=== PATIENT | female | born 1955 | race African-American/Black ===

== ENCOUNTER 2025-01-04 09:31 | Emergency (ER) | payer OTHER, MEDICAID ==
[~2025-01-04] VITALS: Ht 167.6 cm; Wt 75.0 kg
[~2025-01-04 09:31] MED LIST: NITR0.4S29 SL
--- NOTE | 2025-01-04 09:40 | ED.PDOC ---
HPI Comments 69 year old female presents to the ED via EMS with a chief complaint of chest pain onset today around 06:00. Patient states she has LT sided chest pain, described as a pressure sensation since 06:00. Prior to EMS arrival, pain was 10/10, upon ED arrival pain has improved to 6/10. Upon EMS arrival, patient O2 sat was 91% RA, placed on 2L NC, hypertensive with BP 200/102, states she took HTN medication this morning. Patient states she had been experiencing cough and congestion the past 2 days. She also noticed shortness of breath. PMHx angina, HTN. Denies nausea, vomiting, diarrhea, headache, dizziness, abdominal pain, dysuria, hematuria. No other symptoms or modifying factors present at this time. Time Seen by MD: 09:33 Primary Care Provider: ERASTO Guzman Notes: Medications, Allergies Allergies: Coded Allergies: NO KNOWN ALLERGIES (Unverified , 06/10/15) Home Meds Active Scripts Nitroglycerin (Nitrostat) 0.4 Mg Sub, 0.4 MG SL Q12HP PRN, #10 INJ Prov:ARYA CHRISTENSEN PAC 07/18/24 Information Source: Patient, Emergency Med Personnel Mode of Arrival: EMS Severity: Moderate Timing: Hours Duration: Since onset Prehospital treatment: Oxygen Location: Chest (L) Radiation: No Radiation Quality: Pressure Onset: At Rest Cardiac Risk Factors: HTN PE Risk Factors: None History of: Angina Modifying Factors: Nothing Associated Signs and Symptoms: SOB, Other Past Medical History PAST MEDICAL HISTORY: Angina, HTN Surgical History: Denies all surgeries EQUAL OPPORTUNITY COUNSELOR History: No Pertinent EQUAL OPPORTUNITY COUNSELOR History Family History Family History: Reviewed,noncontributory to illness, No family hx of Cancer, No family hx of DM, No family hx of Heart girma, No family hx of HTN, No family hx ofKidney girma, No family hx of Liver girma, No family hx of Lung girma, No family hx of Stroke Social History Smoker: Non-Smoker Alcohol: Denies ETOH Use Drugs: Denies Drug Use Lives In: Home Constitutional: denies: chills, diaphoresis, fatigue, fever, malaise, sweats, weakness, others EENTM: reports: nose congestion; denies: blurred vision, double vision, ear bleeding, ear discharge, ear drainage, ear pain, ear ringing, eye pain, eye redness, hearing loss, mouth pain, mouth swelling, nasal discharge, nose bleeding, nose pain, photophobia, tearing, throat pain, throat swelling, voice changes, others Respiratory: reports: cough, shortness of breath; denies: hemoptysis, orthopnea, SOB at rest, SOB with excertion, stridor, wheezing, others Cardiovascular: reports: chest pain; denies: dizzy spells, diaphoresis, Dyspnea on exertion, edema, irregular heart beat, left arm pain, lightheadedness, palpitations, PND, syncope, others Gastrointestinal: denies: abdomen distended, abdominal pain, blood streaked bowels, constipated, diarrhea, dysphagia, difficulty swallowing, hematemesis, melena, nausea, poor appetite, poor fluid intake, rectal bleeding, rectal pain, vomiting, others Genitourinary: denies: abnormal vagina bleeding, burning, dyspareunia, dysuria, flank pain, frequency, hematuria, incontinence, pain, , vagina discharge, urgency, others Neurological: denies: dizziness, fainting, headache, left sided numbness, left sided weakness, numbness, paresthesia, pre-existing deficit, right sided n umbness, right sided weakness, seizure, speech problems, tingling, tremors, weakness, others Musculoskeletal: denies: back pain, gout, joint pain, joint swelling, muscle pain, muscle stiffness, neck pain, others Integumetry: denies: bruises, change in color, change in hair/nails, dryness, laceration, lesions, lumps, rash, wounds, others Allergic/Immunocompromised: denies: Difficulty Healing, Frequent Infections, Hives, Itching, others Hematologic/Lymphatic: denies: anemia, blood clots, easy bleeding, easy bruising, swollen glands, others Endocrine: denies: excessive hunger, excessive sweating, excessive thirst, excessive urination, flushing, intolerance to cold, intolerance to heat, unexplained weight gain, unexplained weight loss, others Psychiatric: denies: anxiety, bipolar disorder, depression, hopeless, panic disorder, schizophrenia, sleepless, suicidal, others All Other Systems: Reviewed and Negative Physical Exam General Appearance: No Apparent Distress, Normal HEENT: Normal ENT Inspection, Pharynx Normal, TMs Normal Neck: Full Range of Motion, Non-Tender, Normal, Normal Inspection Respiratory: Chest Non-Tender, Lungs Clear, No Accessory Muscle Use, No Respiratory Distress, Normal Breath Sounds Cardiovascular: No Edema, No JVD, No Murmur, No Gallop, Normal Peripheral Pulses, Regular Rate/Rhythm Breast Exam: Deferred Gastrointestinal: No Organomegaly, Non Tender, No Pulsatile Mass, Normal Bowel Sounds, Soft Genitalia: Deferred Pelvic: Deferred Rectal: Deferred Extremities: No calf tenderness, Normal capillary refill, Normal inspection, Normal range of motion, Non-tender, No pedal edema Musculoskeletal : Apperance: Normal Neurologic: Alert, manager security and safety II-XII nml as Tested, No Motor Deficits, Normal Affect, Normal Mood, No Sensory Deficits Cerebellar Function: Normal Reflexes: Normal Skin: Dry, Normal Color, Warm Lymphatic: No Adenopathy Was a procedure done? Was a procedure done?: No CP Differential Dx Differential Diagnosis: Hypoxia, MAT, ID, PAC's Differential Diagnosis: HTN Essential, HTN Accelerated, HTN Encephalopathy Differential Diagnosis: Chest Wall Pain X-Ray, Labs, Meds, VS Vital Signs Date Time Temp Pulse Resp B/P (MAP) Pulse Ox O2 Delivery O2 Flow Rate FiO2 01/04/25 12:50 88 22 204/101 (135) 93 01/04/25 12:35 83 01/04/25 12:00 98.6 81 16 188/88 (121) 100 98.6 01/04/25 10:40 70 01/04/25 10:24 72 11 100 Room Air* 0 21 01/04/25 10:20 67 01/04/25 10:19 97.9 71 12 173/91 (118) 100 97.9 01/04/25 09:38 98.0 88 18 200/102 (134) 99 98.0 01/04/25 09:31 75 Lab Test 01/04/25 13:25 01/04/25 10:36 01/04/25 09:38 Range/Units Troponin I High Sensitivity 4 4 3 L </=34 ng/L White Blood Count 7.3 4.4-10.8 10^3/uL Red Blood Count 3.42 L 4.0-5.20 10^6/uL Hemoglobin 11.1 L 12.2-16.2 g/dL Hematocrit 32.8 L 36.0-46.0 % Mean Corpuscular Volume 96.0 80.0-100.0 fL Mean Corpuscular Hemoglobin 32.5 H 28.0-32.0 pg Mean Corpuscular Hemoglobin Concent 33.9 32.0-36.0 g/dL Red Cell Distribution Width 14.0 11.8-14.3 % Platelet Count 155 140-450 10^3/uL Mean Platelet Volume 7.7 6.9-10.8 fL Neutrophils (%) (Auto) 76.6 37.0-80.0 % Lymphocytes (%) (Auto) 12.2 10.0-50.0 % Monocytes (%) (Auto) 10.9 0.0-12.0 % Eosinophils (%) (Auto) 0.1 0.0-7.0 % Basophils (%) (Auto) 0.2 0.0-2.0 % Neutrophils # (Auto) 5.6 1.6-8.6 10 ^3/uL Lymphocytes # (Auto) 0.9 0.4-5.4 10 ^3/uL Monocytes # (Auto) 0.8 0-1.3 10 ^3/uL Eosinophils # (Auto) 0 0-0.8 10 ^3/uL Basophils # (Auto) 0 0-0.2 10 ^3/uL Nucleated Red Blood Cells 0.0 % Sodium Level 140 136-145 mmol/L Potassium Level 3.9 3.5-5.1 mmol/L Chloride Level 112 H 98-107 mmol/L Carbon Dioxide Level 24 20-31 mmol/L Anion Gap 4 L 5-15 Blood Urea Nitrogen 16 9-23 mg/dL Creatinine 0.92 0.550-1.02 mg/dL Glomerular Filtration Rate Calc 67 >90 mL/min BUN/Creatinine Ratio 17.4 10.0-20.0 Serum Glucose 137 H 74-106 mg/dL Calcium Level 9.0 8.7-10.4 mg/dL [place] [id number] Ph: [phone] DIAGNOSTIC IMAGING Diagnostic Imaging Report : [id number] Signed PATIENT: ROSE PEREZ ACCT: [id number] UNIT: [id number] : 1955 LOC: ER ROOM / BED: / AGE / SEX: 69 / F ADM STATUS: REG ER SERVICE [id number] ORDERING PHYSICIAN: JOSE EDUARDO JEFFERSON MD PROCEDURE(s): CXRP - CHEST PORTABLE REASON: chest pain ORDER NUMBER(s): [id number], ACCESSION NUMBER(s): [id number] EXAM: XY CHEST PORTABLE HISTORY: chest pain COMPARISON: XY CHEST PORTABLE on DOS: 07/18/24 TECHNIQUE: Portable AP view of the chest was performed. FINDINGS: No pneumothorax, consolidative infiltrates, or pulmonary edema. The heart is borderline enlarged. There are degenerative changes of the right shoulder, with high-riding humeral head consistent with significant rotator cuff tendinopathy. IMPRESSION: 1. No acute intrathoracic process. 2. Secondary evidence of right shoulder rotator cuff tendinopathy. Consider follow-up noncontrast MRI of the right shoulder for better characterization. ATED BY: AMADOR CALVERT MD DICTATED DATE/TIME: 01/04/251121 SIGNED BY: AMADOR CALVERT MD SIGNED DATE/TIME: 01/04/251121 CC: Time of 1ST Reevaluation: 10:03 Reevaluation 1ST: Unchanged Patient Education/Counseling: Diagnosis, Treatment, Prognosis Family Education/Counseling: No Family Present Additional Information The following tests were ordered, and results were reviewed by me: EKG -x3, BMP, CBC, TROP -x3, XY CHEST Additional Information was gathered from interviewing the following independent historians: EMS I reviewed and agreed with the following test results read by other providers: XY CHEST I discussed treatment and results with medical personnel and: Patient Comprehensive systems review obtained and negative except for what is stated in the HPI. Departure 1 Departure Time of Disposition: 20:03 (Patient presented with chest pain that was concerning for possible STEMI, ACS, PE, Pneumonia, Muscle Strain, COPD, Dissection. Data: 1. I ordered and reviewed the result of at least 3 labs including a CBC, BMP, and Troponin. 2. I independently interpreted the following tests: EKG which shows sinus arrhythmia and Chest X-ray which shows benign chest.Risk:This patient has a high risk of morbidity due to further diagnostic testing or treatment and may suffer from an acute cardiac or respiratory disorder. Workup reveals concern for ACS and patient should be admitted for further workup and possible expert consultation. Discussed with Matti who was following up on labs.Matti informed me that patient has had multiple calls to them for psychiatric help the past several days.Patient is signed out AMA) Impression: Primary Impression: Acute chest pain Additional Impression: Shortness of breath Disposition: LEFT AGAINST MEDICAL ADVICE Condition: Serious Critical Care Note Critical Care Time?: No Stability Stability form required: No Heart Score Heart Score: Heart Score Response (Comments) Value History Moderate Suspicious 1 EKG Repolarization Disturb 1 Age >65 2 Risk Factors >3 or Hx ASHD 2 Troponin Normal limit 0 Total 6 I personally scribed for JOSE EDUARDO JEFFERSON MD ([email or web address]) on 01/04/25 at 09:40. Electronically submitted by Linn Parra ([email or web address]). I personally scribed for JOSE EDUARDO JEFFERSON MD ([email or web address]) on 01/04/25 at 09:47. Electronically submitted by Linn Parra ([email or web address]). I personally scribed for JOSE EDUARDO JEFFERSON MD ([email or web address]) on 01/04/25 at 10:48. Electronically submitted by Linn Parra ([email or web address]). I personally scribed for JOSE EDUARDO JEFFERSON MD ([email or web address]) on 01/04/25 at 11:38. Electronically submitted by Linn Parra ([email or web address]). JOSE EDUARDO JEFFERSON MD Jan 04, 2025 09:40
[2025-01-04 09:46] LABS: Basophils # (auto) 0 10 ^3/uL (0-0.2); Basophils % (auto) 0.2 % (0.0-2.0); Eosinophils # (auto) 0 10 ^3/uL (0-0.8); Eosinophils % (auto) 0.1 % (0.0-7.0); Hematocrit 32.8 % (36.0-46.0); Hemoglobin 11.1 g/dL (12.2-16.2); Lymphocytes # (auto) 0.9 10 ^3/uL (0.4-5.4); Lymphocytes % (auto) 12.2 % (10.0-50.0); Mean Corpuscular Hemoglobin 32.5 pg (28.0-32.0); Mean Corpuscular Hgb Conc. 33.9 g/dL (32.0-36.0); Monocytes # (auto) 0.8 10 ^3/uL (0-1.3); Monocytes % (auto) 10.9 % (0.0-12.0); Neutrophils # (auto) 5.6 10 ^3/uL (1.6-8.6); Neutrophils % (auto) 76.6 % (37.0-80.0); Platelet Count (auto) 155 10^3/uL (140-450); Red Blood Cells 3.42 10^6/uL (4.0-5.20); White Blood Cell 7.3 10^3/uL (4.4-10.8)
[2025-01-04 10:02] LABS: Potassium 3.9 mmol/L (3.5-5.1); Sodium 140 mmol/L (136-145)
[2025-01-04 10:03] LABS: Carbon Dioxide 24 mmol/L (20-31)
[2025-01-04 10:08] LABS: BUN/Creatinine Ratio 17.4 (10.0-20.0); Blood Urea Nitrogen 16 mg/dL (9-23); Glucose 137 mg/dL (74-106)
[2025-01-04 10:24] VITALS: PULSE 72; RESP 11; O2SAT 100
[2025-01-04 10:29] LABS: Anion Gap 4 (5-15)
[2025-01-04 10:35] LABS: Chloride 112 mmol/L (98-107)
--- NOTE | 2025-01-04 11:24 | DVH ---
EXAM: XY CHEST PORTABLE HISTORY: chest pain COMPARISON: XY CHEST PORTABLE on DOS: 07/18/24 TECHNIQUE: Portable AP view of the chest was performed. FINDINGS: No pneumothorax, consolidative infiltrates, or pulmonary edema. The heart is borderline enl arged. There are degenerative changes of the right shoulder, with high-riding humeral head consistent with significant rotator cuff tendinopathy. IMPRESSION: 1. No acute intrathoracic process. 2. Secondary evidence of right shoulder rotator cuff tendinopathy. Consider follow-up noncontrast MR I of the right shoulder for better characterization.
[2025-01-04 12:00] VITALS: TEMP 98.6
--- NOTE | 2025-01-04 12:38 | ECG ---
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
[2025-01-04 12:50] VITALS: BP 204/101; PULSE 88; RESP 22; O2SAT 93
[2025-01-04] MEDS: hydrALAZINE HCL 20 MG/ML VL IV ONE (12:55)
[2025-01-04] MEDS ORDERED: LORazepam 2MG/ML-1ML VIAL IV ONE (13:45)
[2025-01-04] MEDS: LORazepam 0.5 MG TAB PO ONE (14:08)
--- NOTE | 2025-01-04 20:55 | ECG ---
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
--- NOTE | 2025-01-05 08:14 | ECG ---
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
== END 2025-01-04 14:13 | disposition left against medical advice (07) ==
LOC: EDBD 09:31 → ER 09:31
DX: R07.89 Other chest pain (principal); I20.9 Angina pectoris, unspecified; I10 Essential (primary) hypertension; R06.02 Shortness of breath
CPT/HCPCS: 36415; 71045; 80048; 84484; 85025; 93005